=== PATIENT | female | born 1970 | race Caucasian/White ===

== ENCOUNTER 2018-04-29 22:24 | Emergency (ER) | payer MEDICAID ==
[~2018-04-29] VITALS: Ht 162.6 cm; Wt 92.0 kg
[~2018-04-29 22:24] MED LIST: ALBU8HFA PO
[2018-04-29 22:29] VITALS: BP 151/86
== END 2018-04-30 03:08 | disposition left against medical advice (07) ==
LOC: ER 22:25
DX: S91.332A Puncture wound without foreign body, left foot, initial encounter (principal); Z53.21 Procedure and treatment not carried out due to patient leaving prior to being seen by health care provider; X58.XXXA Exposure to other specified factors, initial encounter; Y93.89 Activity, other specified; Y92.89 Other specified places as the place of occurrence of the external cause; Y99.9 Unspecified external cause status

== ENCOUNTER 2018-06-18 14:45 | Emergency (ER) | payer MEDICAID ==
[~2018-06-18] VITALS: Ht 162.6 cm; Wt 90.0 kg
[2018-06-18] MEDS ORDERED: ondansetron/PF 4mg/2ml inj IV ONE (14:55)
[2018-06-18] MEDS ORDERED: normal saline 1000ML IV soln IVB ONE (14:55)
[2018-06-18] MEDS ORDERED: LORazepam 2 mg/ml vial IV ONE (14:55)
[2018-06-18 15:27] LABS: BASOPHILS % (AUTO) 0.5 % (0-1); EOSINOPHILS # (AUTO) 0.2 X10'3 (0-0.9); EOSINOPHILS % (AUTO) 2.7 % (0-6); HEMATOCRIT 39.6 % (35.0-45.0); HEMOGLOBIN 13.7 g/dl (12.0-16.0); LYMPHOCYTES # (AUTO) 2.5 X10'3 (1.1-4.8); LYMPHOCYTES % (AUTO) 28.2 % (21-51); MEAN CORPUSCULAR HEMOGLOBIN 31.2 PG (27.0-31.0); MEAN CORPUSCULAR HGB CONC 34.6 % (33.0-36.5); MEAN CORPUSCULAR VOLUME 90.2 FL (78-98); MEAN PLATELET VOLUME 9.1 FL (7.4-10.4); MONOCYTES # (AUTO) 0.3 X10'3 (0-0.9); MONOCYTES % (AUTO) 3.7 % (2-12); NEUTROPHILS # (AUTO) 5.8 X10'3 (1.8-7.7); NEUTROPHILS % (AUTO) 64.9 % (42-75); PLATELET COUNT 284 X10'3 (140-440); RED BLOOD COUNT 4.39 X10'6 (4.20-5.60); RED CELL DISTRIBUTION WIDTH 12.9 % (11.5-14.5)
[2018-06-18 15:31] LABS: ALANINE AMINOTRANSFERASE 47 U/L (12-78); ALBUMIN 3.3 G/DL (3.4-5.0); ALKALINE PHOSPHATASE 78 IU/L (46-116); ANION GAP 3 (8-16); ASPARTATE AMINO TRANSFERASE 31 U/L (10-37); BILIRUBIN,TOTAL 0.2 MG/DL (0.1-1.0); BLOOD UREA NITROGEN 16 MG/DL (7-18); BUN/CREATININE RATIO 17.4 (6.6-38.0); CALCIUM 8.9 MG/DL (8.5-10.1); CHLORIDE 108 MMOL/L (99-107); CREATINE KINASE 47 U/L (26-192); CREATININE 0.92 MG/DL (0.40-0.90); GLUCOSE 95 MG/DL (70-104); POTASSIUM 4.1 MMOL/L (3.5-5.1); SODIUM 141 MMOL/L (135-145); TOTAL PROTEIN 6.7 G/DL (6.4-8.2); eGFR 65 ML/MIN
[2018-06-18 15:37] LABS: PHENYTOIN (DILANTIN) < 0.5 UG/ML (10.0-20.0)
[2018-06-18] MEDS ORDERED: phenytoin sod ER 100mg capsule PO ONE (15:45)
[2018-06-18] MEDS ORDERED: TOPI100T18 PO (16:30)
[2018-06-18] MEDS ORDERED: PHEN300C6 PO (16:30)
[2018-06-18] MEDS ORDERED: GABA800T2 PO (16:30)
[2018-06-18] MEDS ORDERED: HYDROcodone/acetaminophen 5mg/325mg tablet PO ONE (17:05)
[2018-06-18 17:06] VITALS: BP 143/88
== END 2018-06-18 17:07 | disposition home or self-care (01) ==
LOC: ER 14:45
DX: R56.9 Unspecified convulsions (principal); J45.909 Unspecified asthma, uncomplicated; Z88.0 Allergy status to penicillin; Z79.899 Other long term (current) drug therapy
CPT/HCPCS: 36415; 72100; 73502; 80053; 80185; 82550; 85025; 93005; 96374; 96375; 99285; J2060; J2405; J7030

== ENCOUNTER 2019-02-09 18:57 | Emergency (ER) | payer MEDICAID ==
[~2019-02-09] VITALS: Ht 162.6 cm; Wt 95.7 kg
[~2019-02-09 18:57] MED LIST changes: +CLIN-96 PO; +GABA800T11 PO; +PANT-47 PO; +PHEN300C6 PO; +TOP100T PO
[2019-02-09 19:34] VITALS: BP 141/83
[2019-02-09] MEDS ORDERED: ketorolac trometh. 30mg/ml inj. IV ONE (20:35)
[2019-02-09] MEDS ORDERED: NAPR-56 PO (20:42)
== END 2019-02-09 20:58 | disposition home or self-care (01) ==
LOC: ER 19:17
DX: S50.12XA Contusion of left forearm, initial encounter (principal); S50.02XA Contusion of left elbow, initial encounter; F12.90 Cannabis use, unspecified, uncomplicated; Z88.0 Allergy status to penicillin; Z79.899 Other long term (current) drug therapy; X50.0XXA Overexertion from strenuous movement or load, initial encounter; Y93.89 Activity, other specified; Y92.89 Other specified places as the place of occurrence of the external cause; Y99.8 Other external cause status
CPT/HCPCS: 73090; 96374; 99283; J1885

== ENCOUNTER 2019-07-21 11:21 | Emergency (ER) | payer MEDICAID ==
[~2019-07-21] VITALS: Ht 162.6 cm; Wt 93.2 kg
[~2019-07-21 11:21] MED LIST changes: +CLIN-90 PO; -CLIN-96 PO
[2019-07-21 12:04] LABS: BASOPHILS # (AUTO) 0.1 X10'3 (0-0.2); BASOPHILS % (AUTO) 0.6 % (0-1); EOSINOPHILS # (AUTO) 0.2 X10'3 (0-0.9); EOSINOPHILS % (AUTO) 2.6 % (0-6); HEMATOCRIT 41.8 % (35.0-45.0); HEMOGLOBIN 14.7 g/dl (12.0-16.0); LYMPHOCYTES # (AUTO) 2.6 X10'3 (1.1-4.8); LYMPHOCYTES % (AUTO) 28.4 % (21-51); MEAN CORPUSCULAR HEMOGLOBIN 32.4 PG (27.0-31.0); MEAN CORPUSCULAR HGB CONC 35.1 g/dL (33.0-36.5); MEAN CORPUSCULAR VOLUME 92.4 FL (78-98); MEAN PLATELET VOLUME 8.7 FL (7.4-10.4); MONOCYTES # (AUTO) 0.5 X10'3 (0-0.9); MONOCYTES % (AUTO) 5.2 % (2-12); NEUTROPHILS # (AUTO) 5.8 X10'3 (1.8-7.7); NEUTROPHILS % (AUTO) 63.2 % (42-75); PLATELET COUNT 303 X10'3 (140-440); RED BLOOD COUNT 4.52 X10'6 (4.20-5.60); RED CELL DISTRIBUTION WIDTH 13.7 % (11.5-14.5); WHITE BLOOD COUNT 9.1 X10'3 (4.5-11.0)
[2019-07-21] MEDS ORDERED: phenytoin sod ER 100mg capsule PO ONE (12:15)
[2019-07-21 12:17] LABS: ALANINE AMINOTRANSFERASE 51 U/L (12-78); ALBUMIN 3.4 G/DL (3.4-5.0); ALBUMIN/GLOBULIN RATIO 0.9 (1.1-1.5); ALKALINE PHOSPHATASE 102 IU/L (46-116); ANION GAP 10 (8-16); ASPARTATE AMINO TRANSFERASE 21 U/L (10-37); BILIRUBIN,TOTAL 0.1 MG/DL (0.1-1.0); BLOOD UREA NITROGEN 16 MG/DL (7-18); CALCIUM 8.5 MG/DL (8.5-10.1); CHLORIDE 108 MMOL/L (99-107); CREATININE 0.84 MG/DL (0.40-0.90); GLUCOSE 134 MG/DL (70-104); PHENYTOIN (DILANTIN) 3.2 UG/ML (10.0-20.0); POTASSIUM 3.6 MMOL/L (3.5-5.1); SODIUM 144 MMOL/L (135-145); TOTAL CARBON DIOXIDE 25.8 MMOL/L (24-32); TOTAL PROTEIN 7.1 G/DL (6.4-8.2); eGFR 72 ML/MIN
[2019-07-21 12:19] LABS: PARTIAL THROMBOPLASTIN TIME 27 SECONDS (22-32)
[2019-07-21] MEDS ORDERED: CLIN-90 PO (12:36)
[2019-07-21 12:41] LABS: CLARITY,URINE CLOUDY (Clear); COLOR,URINE YELLOW (Yellow); GLUCOSE, URINE NEGATIVE (Neg); KETONES,URINE NEGATIVE (Neg); LEUKOCYTE ESTERASE ,URINE NEGATIVE (Neg); NITRITES, URINE NEGATIVE (Neg); OCCULT BLOOD,URINE NEGATIVE (Neg); PROTEIN,URINE NEGATIVE (Neg); UA COLLECTION TYPE CLN CATCH MIDSTREAM; UROBILINOGEN,URINE 0.2 E.U/dL (0.2-1.0)
[2019-07-21 12:42] LABS: BACTERIA,URINE 1+ /HPF (Neg); MUCUS STRANDS FEW /LPF (Neg); RBC,URINE 0-2 /HPF (0-2); SQUAMOUS EPITHELIAL CELL,UR MANY /LPF (FEW); YEAST FEW /HPF (NEGATIVE)
[2019-07-21 12:44] LABS: WBC,URINE 0-4 /HPF (0-4)
[2019-07-21 12:54] VITALS: BP 125/91
== END 2019-07-21 12:57 | disposition home or self-care (01) ==
LOC: ER 11:22
DX: G40.909 Epilepsy, unspecified, not intractable, without status epilepticus (principal); K02.9 Dental caries, unspecified; J45.909 Unspecified asthma, uncomplicated; F12.90 Cannabis use, unspecified, uncomplicated; Z88.0 Allergy status to penicillin; Z79.2 Long term (current) use of antibiotics; Z79.899 Other long term (current) drug therapy
CPT/HCPCS: 36415; 80053; 80185; 81001; 84484; 85025; 85610; 85730; 93005; 99284

== ENCOUNTER 2020-01-14 12:45 | Emergency (ER) | payer MEDICAID ==
[~2020-01-14] VITALS: Ht 162.6 cm; Wt 97.7 kg
[~2020-01-14 12:45] MED LIST changes: -CLIN-90 PO; +CLIN-97 PO
[2020-01-14 12:53] VITALS: BP 146/104
[2020-01-14 13:28] LABS: URINE AMPHETAMINE SCREEN POSITIVE (Neg); URINE BARBITUATE SCREEN NEGATIVE (Neg); URINE BENZODIAZEPINES SCREEN POSITIVE (Neg); URINE CANNABINOID SCREEN POSITIVE (Neg); URINE COCAINE SCREEN NEGATIVE (Neg); URINE METHADONE SCREEN NEGATIVE (Neg); URINE OPIATE SCREEN NEGATIVE (Neg); URINE PHENCYCLIDINE SCREEN NEGATIVE (Neg)
[2020-01-14] MEDS ORDERED: acetaminophen 325mg tablet PO ONE (13:50)
--- NOTE | 2020-01-14 14:18 | NUR ---
Pt observed walking toward ambulance bay, Pt stated she was leaving. Pt did not give a reason. Encouraged Pt to stay for treatment to be completed. Pt shouted a few obscenities and continued walking away from hospital.
== END 2020-01-14 14:18 | disposition home or self-care (01) ==
LOC: ER 12:46
DX: S80.212A Abrasion, left knee, initial encounter (principal); S80.211A Abrasion, right knee, initial encounter; R51 Headache; T50.905A Adverse effect of unspecified drugs, medicaments and biological substances, initial encounter; J45.909 Unspecified asthma, uncomplicated; F12.90 Cannabis use, unspecified, uncomplicated; Z88.0 Allergy status to penicillin; Z79.899 Other long term (current) drug therapy; X58.XXXA Exposure to other specified factors, initial encounter; Y93.89 Activity, other specified; Y92.89 Other specified places as the place of occurrence of the external cause; Y99.8 Other external cause status
CPT/HCPCS: 70450; 80305; 99284

== ENCOUNTER 2020-08-09 11:05 | Inpatient (IN) | payer MEDICAID ==
[~2020-08-09] VITALS: Ht 160 cm; Wt 99.8 kg
[2020-08-09] MEDS ORDERED: levetiracetam-NS 1000mg/100ml 100 ML IV STA (11:27)
[2020-08-09] MEDS ORDERED: magnesium 2GM in 50ml NS 50 ML IV ONE (11:30)
[2020-08-09] MEDS ORDERED: normal saline 1000ML IV soln IVB ONE (11:30)
[2020-08-09] MEDS ORDERED: LORazepam 2 mg/ml vial IV ONE ×2 (11:30→12:25)
[2020-08-09 11:58] LABS: HEMOGLOBIN 14.7 g/dl (12.0-16.0); MEAN PLATELET VOLUME 8.3 FL (7.4-10.4); WHITE BLOOD COUNT 8.4 X10'3 (4.5-11.0)
[2020-08-09 12:00] LABS: BASOPHILS # (AUTO) 0.1 X10'3 (0-0.2); BASOPHILS % (AUTO) 0.6 % (0-1); EOSINOPHILS # (AUTO) 0.1 X10'3 (0-0.9); EOSINOPHILS % (AUTO) 1.5 % (0-6); HEMATOCRIT 42.4 % (35.0-45.0); LYMPHOCYTES # (AUTO) 2.8 X10'3 (1.1-4.8); LYMPHOCYTES % (AUTO) 33.4 % (21-51); MEAN CORPUSCULAR HEMOGLOBIN 32.2 PG (27.0-31.0); MEAN CORPUSCULAR HGB CONC 34.6 g/dL (33.0-36.5); MEAN CORPUSCULAR VOLUME 93.2 FL (78-98); MONOCYTES # (AUTO) 0.4 X10'3 (0-0.9); MONOCYTES % (AUTO) 4.4 % (2-12); NEUTROPHILS # (AUTO) 5.1 X10'3 (1.8-7.7); NEUTROPHILS % (AUTO) 60.1 % (42-75); PLATELET COUNT 273 X10'3 (140-440); RED BLOOD COUNT 4.55 X10'6 (4.20-5.60); RED CELL DISTRIBUTION WIDTH 13.1 % (11.5-14.5)
[2020-08-09 12:05] LABS: CLARITY,URINE CLEAR (Clear); COLOR,URINE STRAW (Yellow); GLUCOSE, URINE NEGATIVE (Neg); KETONES,URINE NEGATIVE (Neg); LEUKOCYTE ESTERASE ,URINE NEGATIVE (Neg); NITRITES, URINE NEGATIVE (Neg); OCCULT BLOOD,URINE NEGATIVE (Neg); PROTEIN,URINE NEGATIVE (Neg); UA COLLECTION TYPE CLN CATCH MIDSTREAM; UROBILINOGEN,URINE 0.2 E.U/dL (0.2-1.0)
[2020-08-09 12:18] LABS: URINE AMPHETAMINE SCREEN NEGATIVE (Neg); URINE BARBITUATE SCREEN NEGATIVE (Neg); URINE BENZODIAZEPINES SCREEN POSITIVE (Neg); URINE CANNABINOID SCREEN NEGATIVE (Neg); URINE COCAINE SCREEN NEGATIVE (Neg); URINE METHADONE SCREEN NEGATIVE (Neg); URINE OPIATE SCREEN NEGATIVE (Neg); URINE PHENCYCLIDINE SCREEN NEGATIVE (Neg)
[2020-08-09 12:38] LABS: ALANINE AMINOTRANSFERASE 19 U/L (12-78); ALBUMIN/GLOBULIN RATIO 1.1 (1.1-1.5); ALKALINE PHOSPHATASE 130 IU/L (46-116); ANION GAP 12 (8-16); ASPARTATE AMINO TRANSFERASE 11 U/L (10-37); BILIRUBIN,TOTAL 0.3 MG/DL (0.1-1.0); BLOOD UREA NITROGEN 14 MG/DL (7-18); BUN/CREATININE RATIO 15.1 (6.6-38.0); CALCIUM 8.4 MG/DL (8.5-10.1); CHLORIDE 107 MMOL/L (99-107); CREATININE 0.93 MG/DL (0.40-0.90); ETHANOL < 0.010 GM/DL (0.0-0.010); GLUCOSE 92 MG/DL (70-104); PHENYTOIN (DILANTIN) 21.7 UG/ML (10.0-20.0); POTASSIUM 3.7 MMOL/L (3.5-5.1); SODIUM 141 MMOL/L (135-145); TOTAL CARBON DIOXIDE 22.1 MMOL/L (24-32); TOTAL PROTEIN 7.6 G/DL (6.4-8.2); eGFR 64 ML/MIN
--- NOTE | 2020-08-09 13:45 | NUR ---
CALLED [facility] TO CONFIRM ETA TO ASSESS PT.
[2020-08-09] MEDS ORDERED: HYDROcodone/acetaminophen 5mg/325mg tablet PO ONE (15:05)
[2020-08-09] MEDS ORDERED: PHEN100C12 PO (16:47)
[2020-08-09] MEDS ORDERED: TOPI200T16 PO (16:47)
[2020-08-09] MEDS ORDERED: GABA-534 PO (16:47)
[2020-08-09] MEDS ORDERED: METH750T3 PO (16:47)
[2020-08-09] MEDS ORDERED: NAPR-996 PO (16:47)
[2020-08-09] MEDS ORDERED: DIAZ10TA4 PO (16:47)
[2020-08-09] MEDS ORDERED: ALBU8HFA IH (17:21)
[2020-08-09] MEDS ORDERED: acetaminophen 325mg tablet PO PRN ×2 (17:35)
[2020-08-09] MEDS ORDERED: ondansetron/PF 4mg/2ml inj IV PRN (17:35)
[2020-08-09] MEDS ORDERED: mag hydrox/Alum hydrox/simeth 30ml oral suspension PO PRN (17:35)
[2020-08-09] MEDS ORDERED: HYDROcodone/acetaminophen 10/325mg tab PO PRN (17:35)
[2020-08-09] MEDS ORDERED: magnesium 2GM in 50ml NS 50 ML IV PRN (17:35)
[2020-08-09] MEDS ORDERED: HYDROcodone/acetaminophen 5mg/325mg tablet PO PRN (17:35)
[2020-08-09] MEDS ORDERED: magnesium 4gm in 100ml NS 100 ML IV PRN (17:35)
[2020-08-09] MEDS ORDERED: ipratropium/albuterol 3ml nebule NEB PRN (17:35)
[2020-08-09] MEDS ORDERED: potassium Cl 20 mEq SR tablet PO PRN ×2 (17:35)
[2020-08-09] MEDS ORDERED: potassium CL 10mEq/100ml bag 100 ML IV PRN ×2 (17:35)
[2020-08-09] MEDS ORDERED: magnesium hydroxide 30ml (MOM) UD suspension PO PRN (17:35)
[2020-08-09] MEDS ORDERED: SIMV-45 PO (17:51)
[2020-08-09] MEDS ORDERED: SUMA100T16 PO (17:51)
[2020-08-09] MEDS ORDERED: OMEP40CA13 PO (17:51)
[2020-08-09] MEDS ORDERED: IBUP-1984 PO (17:51)
[2020-08-09] MEDS ORDERED: SUMAtriptan 25 MG tablet PO PRN (18:00)
[2020-08-09] MEDS: normal saline 1000ml 1,000 ML IV SCH (18:02)
[2020-08-09] MEDS ORDERED: cyclobenzaprine 10mg tablet PO PRN (18:10)
--- NOTE | 2020-08-09 19:08 | NUR ---
[employer] CALLED FOR RN FOR HELP DUE TO PATIENT HAVING A SIEZURE. [facility] RN STATED PT WAS POSTICTAL UPON HER ARRIVAL TO MRI. PT BACK IN ROOM 14. PT IS LETHARGIC BUT ABLE TO ANSWER A&OX4 - BASELINE FROM WHEN I RECEIVED REPORT FROM PREVIOUS RN
[2020-08-09] MEDS ORDERED: phenytoin sod ER 100mg capsule PO SCH (20:00)
[2020-08-09] MEDS: K and/or MAG REPLACEMENT MC SCH (20:00)
[2020-08-09] MEDS ORDERED: enoxaparin 40mg/0.4ml syringe SQ SCH (20:00)
[2020-08-09] MEDS ORDERED: levetiracetam 250mg tablet PO SCH (20:00)
--- NOTE | 2020-08-09 20:15 | NUR ---
pt given sandwich and yogurt as well as pitcher of water
[2020-08-09] MEDS: nicotine 21mg patch - 24 hr TD SCH (20:23)
[2020-08-09] MEDS: topiramate 100mg tablet PO SCH (20:23)
[2020-08-09] MEDS: diazepam 5mg tablet PO SCH (20:23)
[2020-08-09] MEDS: naproxen 500mg tablet PO SCH (20:23)
[2020-08-09] MEDS: gabapentin 400mg capsule PO SCH (21:10)
[2020-08-09 21:45] VITALS: BP 105/74
--- NOTE | 2020-08-09 21:45 | NUR ---
RECEIVED PATIENT FROM ER IN STABLE CONDITION AND ASSUMED PATIENT CARE
[2020-08-10] MEDS: normal saline 1000ml 1,000 ML IV SCH ×2 (03:35→14:19)
[2020-08-10 05:56] LABS: BASOPHILS % (AUTO) 0.6 % (0-1); EOSINOPHILS # (AUTO) 0.2 X10'3 (0-0.9); EOSINOPHILS % (AUTO) 2.6 % (0-6); HEMATOCRIT 36.3 % (35.0-45.0); HEMOGLOBIN 12.4 g/dl (12.0-16.0); LYMPHOCYTES # (AUTO) 2.9 X10'3 (1.1-4.8); MEAN CORPUSCULAR HGB CONC 34.2 g/dL (33.0-36.5); MEAN CORPUSCULAR VOLUME 93.6 FL (78-98); MEAN PLATELET VOLUME 8.4 FL (7.4-10.4); MONOCYTES # (AUTO) 0.3 X10'3 (0-0.9); MONOCYTES % (AUTO) 5.4 % (2-12); NEUTROPHILS # (AUTO) 2.9 X10'3 (1.8-7.7); NEUTROPHILS % (AUTO) 45.4 % (42-75); PLATELET COUNT 219 X10'3 (140-440); RED BLOOD COUNT 3.87 X10'6 (4.20-5.60); RED CELL DISTRIBUTION WIDTH 13.2 % (11.5-14.5); WHITE BLOOD COUNT 6.3 X10'3 (4.5-11.0)
[2020-08-10 06:00] VITALS: BP 115/97
[2020-08-10 06:11] LABS: ALANINE AMINOTRANSFERASE 16 U/L (12-78); ALKALINE PHOSPHATASE 100 IU/L (46-116); ANION GAP 8 (8-16); ASPARTATE AMINO TRANSFERASE 11 U/L (10-37); BILIRUBIN,TOTAL 0.3 MG/DL (0.1-1.0); BLOOD UREA NITROGEN 12 MG/DL (7-18); BUN/CREATININE RATIO 14.6 (6.6-38.0); CALCIUM 8.2 MG/DL (8.5-10.1); CHLORIDE 112 MMOL/L (99-107); CREATININE 0.82 MG/DL (0.40-0.90); GLUCOSE 92 MG/DL (70-104); MAGNESIUM 2.2 MG/DL (1.5-2.4); POTASSIUM 3.9 MMOL/L (3.5-5.1); SODIUM 143 MMOL/L (135-145); TOTAL CARBON DIOXIDE 22.9 MMOL/L (24-32); TOTAL PROTEIN 5.9 G/DL (6.4-8.2); eGFR 74 ML/MIN
--- NOTE | 2020-08-10 06:15 | NUR ---
REPORT GIVEN TO CLAUDIA JOHNSON
--- NOTE | 2020-08-10 06:33 | NUR ---
Patient in room [facility]TH[facility] 4021B. I have received report from ELIZABETH ESCOBAR and had the opportunity to ask questions and assume patient care.
--- NOTE | 2020-08-10 06:34 | NUR ---
PAGED EEG FOR 24HR EEG
[2020-08-10] MEDS: K and/or MAG REPLACEMENT MC SCH (07:21)
[2020-08-10] MEDS ORDERED: pantoprazole 40mg Tablet.DR PO SCH (07:30)
--- NOTE | 2020-08-10 07:50 | NUR ---
CLAUDIA [id number]: [id number] BRANDY ALANIS...PT JUST HAD A SEIZURE DURING PHYSICAL THERAPY..VITALS STABLE....NOW IN POSTICTAL STATE...CAN I GET IV ATIVAN AND OTHER MEDS CHANGED TO IV....AND DO YOU WANT PT ON TELE? THANK YOU
[2020-08-10] MEDS ORDERED: atorvastatin 20mg tablet PO SCH (08:00)
[2020-08-10] MEDS: topiramate 100mg tablet PO SCH ×2 (08:00→20:33)
[2020-08-10] MEDS: gabapentin 400mg capsule PO SCH ×3 (08:00→20:33)
[2020-08-10] MEDS: diazepam 5mg tablet PO SCH (08:00)
[2020-08-10] MEDS ORDERED: LORazepam 2 mg/ml vial IV PRN (08:15)
[2020-08-10] MEDS ORDERED: phenytoin sod 50mg/ml 2ml vial IV SCH (08:15)
[2020-08-10] MEDS ORDERED: levetiracetam-NS 1000mg/100ml 100 ML IV SCH (08:30)
[2020-08-10] MEDS: nicotine 21mg patch - 24 hr TD SCH (08:33)
--- NOTE | 2020-08-10 09:40 | NUR ---
Page Sent PAGER ID: [phone] MESSAGE: CLAUDIA [id number] RE: [id number] BRANDY ALANIS...PT HAVING EEG...DO YOU WANT ME TO HOLD SEIZURE MEDS?
--- NOTE | 2020-08-10 09:40 | NUR ---
PER DR RICHMOND, HOLD SEIZURE MEDS DURING EEG
[2020-08-10 10:00] VITALS: BP 121/68
[2020-08-10] MEDS: naproxen 500mg tablet PO SCH ×2 (10:39→20:33)
[2020-08-10 18:22] VITALS: BP 124/88
--- NOTE | 2020-08-10 18:35 | NUR ---
Problems reprioritized. Patient report given, questions answered & plan of care reviewed with ELIZABETH ESCOBAR.
--- NOTE | 2020-08-10 23:06 | NUR ---
UPON INITIAL ASSESSMENT PATIENT WAS ALERT, ORIENTED AND SPEAKING AT NORMAL RATE. ENTERED PATIENTS ROOM AT 2030 TO GIVE SCHEDULED MEDICATIONS AND PATIENT APPEARED MORE LETHARGIC AND SLOW TO RESPOND. STILL SPEAKING AND ORIENTED. STATES SHE "WAS STRESSED" AND WANTED TO LEAVE AMA. ALSO STATED SHE FELT LIKE SHE WAS GOING TO HAVE A SEIZURE. AT THAT TIME PATIENT AGREED TO TAKE NAPROXEN FOR HEADACHE. 2114 SOLICITOR PATENT AT BEDSIDE TO DISCONNECT 24 HR EEG SO NEUROLOGIST COULD INTERPERATE IT. OK'D BY DR CARBALLO. SINCE SHE WAS DISCONNECTED FROM EEG I ATTEMPTED TO ADMINISTER SEIZURE MEDICATIONS AND ATIVAN SHE WAS EXHIBITING SIGNS OF BEING POSTICTAL AND SHE AGREED TO TAKE THE MEDICATION TO HELP HER RELAX AND MAKE IT THROUGH THE NIGHT WITHOUT LEAVING AMA. DURING THIS TIME THE THE PATIENTS WAS ON THE PHONE WITH HER WELL CALLING THE NURSES STATION TALKING TO ME. TOGETHER WE WERE TRYING TO HELP THE PATIENT STAY IN THE HOSPITAL. UPON ADMINISTRATION OF HER DILANTIN AND ATIVAN IT WAS NOTED HER IV WAS BAD. AFTER THREE FAILED ATTEMPTS TO RESTART THE IV BY TWO DIFFERENT NURSES SHE MADE THE DECISION TO LEAVE AMA. DR CARBALLO NOTIFIED. AT THE TIME OF DISCHARGE PATIENT WAS AGAIN ALERT AND ORIENTED. NO SIGNS OF BEING IN A POSTICTAL STATE. HER GATE WAS NORMAL. PATIENT DRESSED AND SEEN SAFELY EXITING HOSPITAL. WAS DRIVEN HOME BY .
[2020-08-11] MEDS ORDERED: FLU VACC QS2020-21(6MOS UP)/PF 60 MCG/0.5 ML SYRINGE IMVAC ONE (10:00)
== END 2020-08-10 23:00 | disposition left against medical advice (07) | DRG 53 ==
LOC: ER 11:06 → ED HOLD 17:35 → ORTHO 4S 21:20
PROVIDERS: ADMIT Family Medicine; ATTEND Family Medicine
PROC: 4A00X4Z Measurement of Central Nervous Electrical Activity, External Approach (ICD-10-PCS; principal; 2020-08-10)
DX: G40.909 Epilepsy, unspecified, not intractable, without status epilepticus (principal); G83.84 Todd's paralysis (postepileptic); J44.9 Chronic obstructive pulmonary disease, unspecified; E78.5 Hyperlipidemia, unspecified; F17.200 Nicotine dependence, unspecified, uncomplicated; G43.909 Migraine, unspecified, not intractable, without status migrainosus; Z53.29 Procedure and treatment not carried out because of patient's decision for other reasons; M51.9 Unspecified thoracic, thoracolumbar and lumbosacral intervertebral disc disorder; Z88.0 Allergy status to penicillin; Z82.0 Family history of epilepsy and other diseases of the nervous system; Z85.72 Personal history of non-Hodgkin lymphomas
CPT/HCPCS: 36415; 70450; 70551; 71045; 80053; 80185; 80305; 80320; 81003; 82140; 82948; 83735; 85025; 86885; 86900; 86901; 87081; 92508; 92616; 93005; 94760; 95951; 96365; 96366; 97161; 97530; 99285; G0378; J1650; J1953; J2060; J3475; J7030

== ENCOUNTER 2020-11-05 19:30 | Emergency (ER) | payer MEDICAID ==
[~2020-11-05] VITALS: Ht 162.6 cm; Wt 102.8 kg
[~2020-11-05 19:30] MED LIST changes: +ALBU8HFA IH; -ALBU8HFA PO; -CLIN-97 PO; +DIAZ10TA4 PO; +GABA-534 PO; -GABA800T11 PO; +IBUP-1984 PO; +METH750T3 PO; +NAPR-996 PO; +OMEP40CA13 PO; -PANT-47 PO; +PHEN100C12 PO; -PHEN300C6 PO; +SIMV-45 PO; +SUMA100T16 PO; -TOP100T PO; +TOPI200T16 PO
[2020-11-05 20:53] LABS: BASOPHILS # (AUTO) 0.1 X10'3 (0-0.2); BASOPHILS % (AUTO) 0.6 % (0-1); EOSINOPHILS # (AUTO) 0.2 X10'3 (0-0.9); EOSINOPHILS % (AUTO) 1.4 % (0-6); HEMATOCRIT 43.4 % (35.0-45.0); HEMOGLOBIN 14.8 g/dl (12.0-16.0); LYMPHOCYTES # (AUTO) 2.9 X10'3 (1.1-4.8); LYMPHOCYTES % (AUTO) 25.2 % (21-51); MEAN CORPUSCULAR HGB CONC 34.1 g/dL (33.0-36.5); MEAN CORPUSCULAR VOLUME 94.1 FL (78-98); MEAN PLATELET VOLUME 8.4 FL (7.4-10.4); MONOCYTES # (AUTO) 0.6 X10'3 (0-0.9); MONOCYTES % (AUTO) 4.9 % (2-12); NEUTROPHILS # (AUTO) 7.8 X10'3 (1.8-7.7); NEUTROPHILS % (AUTO) 67.9 % (42-75); PLATELET COUNT 261 X10'3 (140-440); RED BLOOD COUNT 4.61 X10'6 (4.20-5.60); WHITE BLOOD COUNT 11.5 X10'3 (4.5-11.0)
[2020-11-05 20:55] LABS: ALANINE AMINOTRANSFERASE 19 U/L (12-78); ALBUMIN 3.7 G/DL (3.4-5.0); ALKALINE PHOSPHATASE 159 IU/L (46-116); ANION GAP 10 (8-16); ASPARTATE AMINO TRANSFERASE 7 U/L (10-37); BILIRUBIN,TOTAL 0.2 MG/DL (0.1-1.0); BLOOD UREA NITROGEN 13 MG/DL (7-18); BUN/CREATININE RATIO 14.3 (6.6-38.0); CALCIUM 8.4 MG/DL (8.5-10.1); CHLORIDE 108 MMOL/L (99-107); CREATININE 0.91 MG/DL (0.40-0.90); GLUCOSE 109 MG/DL (70-104); SODIUM 141 MMOL/L (135-145); TOTAL CARBON DIOXIDE 23.2 MMOL/L (24-32); TOTAL PROTEIN 7.5 G/DL (6.4-8.2); eGFR 65 ML/MIN
[2020-11-05] MEDS ORDERED: LORazepam 2 mg/ml vial IV ONE (21:10)
[2020-11-05 21:22] LABS: CLARITY,URINE CLEAR (Clear); COLOR,URINE YELLOW (Yellow); GLUCOSE, URINE NEGATIVE (Neg); KETONES,URINE NEGATIVE (Neg); LEUKOCYTE ESTERASE ,URINE NEGATIVE (Neg); NITRITES, URINE NEGATIVE (Neg); OCCULT BLOOD,URINE NEGATIVE (Neg); PROTEIN,URINE NEGATIVE (Neg); UROBILINOGEN,URINE 0.2 E.U/dL (0.2-1.0)
[2020-11-05 21:24] LABS: UA COLLECTION TYPE CLN CATCH MIDSTREAM
[2020-11-05 21:38] VITALS: BP 130/88
== END 2020-11-05 21:39 | disposition home or self-care (01) ==
LOC: ER 19:30
DX: S06.9X9A Unspecified intracranial injury with loss of consciousness of unspecified duration, initial encounter (principal); G40.909 Epilepsy, unspecified, not intractable, without status epilepticus; F12.90 Cannabis use, unspecified, uncomplicated; J45.909 Unspecified asthma, uncomplicated; Z88.0 Allergy status to penicillin; Z91.018 Allergy to other foods; Z79.899 Other long term (current) drug therapy; W18.09XA Striking against other object with subsequent fall, initial encounter; Z91.81 History of falling; Y93.89 Activity, other specified; Y92.89 Other specified places as the place of occurrence of the external cause; Y99.8 Other external cause status
CPT/HCPCS: 36415; 70450; 71045; 80053; 81003; 82948; 85025; 96374; 99285; J2060

== ENCOUNTER 2021-08-03 14:07 | Emergency (ER) | payer MEDICAID ==
[~2021-08-03] VITALS: Ht 165.1 cm; Wt 93.2 kg
[~2021-08-03 14:07] MED LIST changes: +METH-798 PO; -METH750T3 PO; -OMEP40CA13 PO; +OMEP40CA21 PO
[2021-08-03 16:10] VITALS: BP 110/73
== END 2021-08-03 16:12 | disposition home or self-care (01) ==
LOC: ER 14:08
DX: G40.909 Epilepsy, unspecified, not intractable, without status epilepticus (principal); R41.82 Altered mental status, unspecified; J45.909 Unspecified asthma, uncomplicated; Z88.0 Allergy status to penicillin; Z91.018 Allergy to other foods; Z79.899 Other long term (current) drug therapy
CPT/HCPCS: 93005; 99283

== ENCOUNTER 2021-08-31 08:50 | Emergency (ER) | payer MEDICAID ==
[2021-08-31] MEDS ORDERED: LORazepam 2 mg/ml vial IV ONE (08:55)
[2021-08-31] MEDS ORDERED: normal saline 1000ML IV soln IVB ONE (08:55)
--- NOTE | 2021-08-31 09:15 | NUR ---
PT IS UNCONSOLABLE DUE TO GRIEF OVER HER MOTHER PASSING THIS AM. PT REQUESTING LAB WORK TO PROVE THAT SHE IS NOT ON DRUGS. ATTEMPTED TO CALM PT DOWN SO SHE COULD SEE HER MOTHER. PT STATING THAT SHE WANTS TO GO HAVE A CIGARETTE, PT INFORMED THAT IT IS NOT SAFE FOR HER TO LEAVE AFTER RECEIVING ATIVAN, THAT SHE COULD NOT LEAVE TO GO OUT TO SMOKE. RN LEFT PT TO OBTAIN IV START KIT AND LAB TUBES WHEN PT WAS NOTED LEAVING OUT OF THE [facility] DOORS BY EMS. PT WAS SEEN GETTING INTO A CAR AND LEAVING, PT WAS NOT DRIVING PER EMS. PT'S NURSE AND PROVIDER NOTIFIED OF ELOPEMENT
== END 2021-08-31 09:30 | disposition left against medical advice (07) ==
LOC: ER 08:50
DX: F43.21 Adjustment disorder with depressed mood (principal); R45.1 Restlessness and agitation; G40.909 Epilepsy, unspecified, not intractable, without status epilepticus; J45.909 Unspecified asthma, uncomplicated; Z88.0 Allergy status to penicillin; Z91.018 Allergy to other foods; Z79.899 Other long term (current) drug therapy
CPT/HCPCS: 96374; 99283; J2060

== ENCOUNTER 2022-05-02 21:08 | Emergency (ER) | payer MEDICAID ==
[~2022-05-02] VITALS: Ht 160 cm; Wt 95.5 kg
[2022-05-02 21:22] VITALS: BP 148/91
== END 2022-05-03 05:30 | disposition left against medical advice (07) ==
LOC: ER 21:09
DX: R07.89 Other chest pain (principal); Z53.21 Procedure and treatment not carried out due to patient leaving prior to being seen by health care provider
CPT/HCPCS: J7030

== ENCOUNTER 2022-05-28 11:47 | Emergency (ER) | payer MEDICAID ==
[~2022-05-28] VITALS: Ht 162.6 cm; Wt 100.0 kg
--- NOTE | 2022-05-28 11:55 | NUR ---
seizure pads placed
[2022-05-28] MEDS ORDERED: LORazepam 2 mg/ml vial IM ONE (14:45)
[2022-05-28 15:12] VITALS: BP 133/93
--- NOTE | 2022-05-28 15:19 | NUR ---
patient became extremely hostile towards hisband at this time demanding he give her car keys. patient started to scream and yell at him and he stated he did not steal her car keys and advised he would wait outside in lobby while patient calms down. alysha jumped up and said she was leaving and threatened to pull her iv out. IV removed and patient escorted out by security. patient eloped at this time
== END 2022-05-28 15:34 | disposition left against medical advice (07) ==
LOC: ER 11:47
DX: G40.909 Epilepsy, unspecified, not intractable, without status epilepticus (principal); F12.90 Cannabis use, unspecified, uncomplicated; Z88.0 Allergy status to penicillin; Z91.018 Allergy to other foods
CPT/HCPCS: 36415; 80185; 96372; 99284

== ENCOUNTER 2022-08-01 17:36 | Emergency (ER) | payer MEDICAID ==
--- NOTE | 2022-08-01 17:41 | NUR ---
ATTEMPT EKG, UNABLE TO GET A ACCURATE READ PER PATIENT REFUSING TO STAY STILL FOR PERIOD OF TEST.
[2022-08-01] MEDS ORDERED: LORazepam 2 mg/ml vial IM ONE (17:50)
--- NOTE | 2022-08-01 20:18 | NUR ---
ENTERED PT ROOM, STAFF STATED PT LEFT AMA.2009
== END 2022-08-01 20:19 | disposition left against medical advice (07) ==
LOC: ER 17:38
DX: F41.9 Anxiety disorder, unspecified (principal); R41.82 Altered mental status, unspecified; J45.909 Unspecified asthma, uncomplicated; F12.90 Cannabis use, unspecified, uncomplicated; Z86.69 Personal history of other diseases of the nervous system and sense organs; Z88.0 Allergy status to penicillin; Z88.8 Allergy status to other drugs, medicaments and biological substances; Z79.899 Other long term (current) drug therapy
CPT/HCPCS: 96372; 99283; J2060; A4565